=== PATIENT | female | born 1985 | race Caucasian/White ===

== ENCOUNTER 2018-06-09 14:59 | Emergency (ER) | payer MEDICAID ==
[~2018-06-09] VITALS: Ht 165.1 cm; Wt 104.8 kg
[2018-06-09 15:07] VITALS: BP 115/85
[2018-06-09] MEDS ORDERED: KETOROLAC 30 MG/1 ML ONE (15:32)
[2018-06-09] MEDS ORDERED: ACETAMINOPHEN 325 MG TABLET ONE (15:32)
[2018-06-09 15:41] LABS: RAPID INFLUENZA A Negative (Negative); RAPID INFLUENZA B Negative (Negative)
[2018-06-09] MEDS ORDERED: LEVO25TA2 PO (15:47)
[2018-06-09] MEDS ORDERED: ALBU90AE INH (15:47)
[2018-06-09] MEDS ORDERED: ETON1VAG VG (15:47)
[2018-06-09] MEDS ORDERED: KETOROLAC 30 MG/1 ML IM ONE (16:00)
[2018-06-09] MEDS ORDERED: ACETAMINOPHEN 325 MG TABLET PO ONE (16:00)
== END 2018-06-09 16:13 | disposition home or self-care (01) ==
LOC: ED 16:07
DX: R05 Cough (principal); J00 Acute nasopharyngitis [common cold]
CPT/HCPCS: 71046; 87400; 96372; 99284; J1885

== ENCOUNTER 2019-11-03 21:58 | Emergency (ER) | payer MEDICAID ==
[~2019-11-03] VITALS: Ht 162.6 cm; Wt 111.0 kg
[~2019-11-03 21:58] MED LIST: ALBU90AE INH; ETON1VAG VG; LEVO25TA2 PO
--- NOTE | 2019-11-03 22:32 | NUR ---
PT PRESENTS WITH MID-CHEST PAIN RADIATING TO RIGHT SHOULDER BLADE. WORSENS WITH MOVEMENT. NAD NOTED AT THIS TIME. SPEAKS IN FULL SENTENCES, JOKES WITH STAFF. IV START, LABS DRAWN AND SENT. CXR AT BEDSIDE.
[2019-11-03 22:45] LABS: BASOPHILS # (AUTO) 0.05 x10^3/uL (0-0.1); BASOPHILS % (AUTO) 1 % (0-1); EOSINOPHILS # (AUTO) 0.32 x10^3/uL (0-0.4); EOSINOPHILS % (AUTO) 3 % (1-7); LYMPHOCYTES # (AUTO) 3.18 x10^3/uL (1-3.4); LYMPHOCYTES % (AUTO) 31 % (22-44); MD NO; MEAN CORPUSCULAR HEMOGLOBIN 29.7 pg (27.0-34.8); MEAN CORPUSCULAR HGB CONC 32.6 g/dL (32.4-35.8); MEAN CORPUSCULAR VOLUME 91.2 fL (80-100); MEAN PLATELET VOLUME 7.8 fL (7.4-10.4); MONOCYTES # (AUTO) 0.72 x10^3/uL (0.2-0.8); MONOCYTES % (AUTO) 7 % (2-9); NEUTROPHILS # (AUTO) 5.96 x10^3/uL (1.8-6.8); NEUTROPHILS % (AUTO) 58 % (42-75); PLATELET COUNT 300 x10^3/uL (130-400); RED BLOOD COUNT 5.05 x10^6/uL (3.82-5.3); RED CELL DISTRIBUTION WIDTH 13.8 % (9.6-15.2)
[2019-11-03 22:51] LABS: ALBUMIN 3.5 g/dL (3.4-5.0); ANION GAP 6 mmol/L (5-15); CALCIUM 9.5 mg/dL (8.5-10.1); CHLORIDE 109 mmol/L (98-107); CREATININE 0.74 mg/dL (0.55-1.02)
[2019-11-03 22:56] LABS: TROPONIN I < 0.015 ng/mL (0.000-0.045)
--- NOTE | 2019-11-03 23:08 | NUR ---
Pt chart up for recheck.
[2019-11-03 23:13] VITALS: BP 124/69
== END 2019-11-03 23:35 | disposition home or self-care (01) ==
LOC: ED 22:50
DX: R07.89 Other chest pain (principal); F17.200 Nicotine dependence, unspecified, uncomplicated; R00.0 Tachycardia, unspecified; Z90.89 Acquired absence of other organs
CPT/HCPCS: 36415; 71045; 80048; 82040; 84484; 84703; 85025; 85379; 93005; 99285